=== PATIENT | female | born 1955 | race Caucasian/White ===

== ENCOUNTER 2024-10-08 09:02 | Day surgery (SDC) | payer MEDICARE, SELFPAY ==
--- NOTE | 2024-10-01 12:58 | HPS.HSE ---
Family Physician
-
Family Physician: NO INTERVIEW UNKNOWN
Chief Complaint
-
Episodic atrial flutter.
History of Present Illness
The patient is a 69 year old female presenting today for episodic atrial flutter. In late July 2024, she was admitted to [facility] for new onset atrial flutter. She reports she was highly symptomatic with palpitations at
the time of presentation. She was placed on a Cardizem drip and converted to normal sinus rhythm. She was started on Eliquis for oral anticoagulation and Sotalol for pharmacological therapy prior to discharge. Since her hospital admission, she does
report intermittent chest discomfort and irregular heart rates likely secondary to her diagnosis. A follow-up EKG done in the office in August 2024 demonstrated significant sinus bradycardia, likely secondary to current medical therapy. It is
recommended she proceed with an atrial flutter ablation at this time in the hopes of potentially discontinuing antiarrhythmic therapy in the near future. Prior to undergoing an ablation, she will require a transesophageal echocardiogram as she held
her Eliquis on 09/17 and 09/18/2024 in the setting of hemorrhoidal bleeding. She denies any current complaints today such as chest pain, shortness of breath, palpitations, nausea, vomiting, diarrhea, lightheadedness, dizziness, cough, sore throat,
or fever.
Medical History
Past Medical History
Past Medical History: Reports Other
Additional Past Medical History:
1. Episodic atrial flutter, pharmacological therapy with Sotalol, oral anticoagulation with Eliquis.
2. Hypertension.
3. Dyslipidemia.
4. Mild mitral regurgitation.
5. Mild aortic insufficiency.
6. Venous varicosities, status post left lower extremity vein stripping.
7. Peptic ulcer disease with GI bleed, status post partial gastrectomy and multiple blood transfusions.
8. Nephrolithiasis.
9. Chronic pancreatitis.
10. Hemorrhoids with intermittent rectal bleeding.
11. Hepatitis C from prior blood transfusion, eradicated in 2019.
12. Chronic diarrhea.
13. Optical migraines.
14. Vertigo.
15. Balance difficulties.
16. Degenerative disc disease.
17. Sciatica.
18. Osteoarthritis.
19. Thyroid nodules.
20. Iron deficiency anemia, status post IV iron.
21. Macular degeneration.
22. Anxiety.
23. Insomnia.
24. Obesity, BMI 30.6.
Past Surgical History: Reports Other
Additional Past Surgical History:
1. Partial gastrectomy.
2. Appendectomy.
3. Hysterectomy.
4. Cholecystectomy.
5. Hemorrhoidal banding x3.
6. Left lower extremity varicose vein stripping.
7. Bilateral foot surgery.
8. Bilateral cataract extraction.
9. Multiple colonoscopies.
10. Multiple endoscopies.
Social History
Tobacco: Non-smoker
Alcohol: None
Personal:
Living: Other (She lives with her in a condo. Her daughter with her family reportedly lives above her residence. )
Family History
Family History: Not pertinent
Allergies / Home Medications
Allergy/Medication List:
Home medications:
1. Apixaban 5 mg p.o. twice a day.
2. Benefiber 2 tbsp p.o. daily.
3. Creon 1 capsule p.o. with snacks as needed.
4. Creon 2 capsules p.o. with meals.
5. Lorazepam 0.5 mg p.o. at bedtime as needed.
6. Florastor 500 mg p.o. daily.
7. Simethicone 80 mg p.o. daily as needed.
8. Sotalol 40 mg p.o. twice a day.
9. PreserVision AREDs 1 tablet p.o. twice a day.
10. Zolpidem 5 mg p.o. at bedtime as needed.
Allergies: No known allergies.
Review of Systems
-
A 12 point ROS was completed and negative except as noted: Yes
Physical Exam
Vital Signs
Blood pressure 137/87. Heart rate 51. Respirations 18. Pulse ox 96%.
Height 5 feet, 3 inches. Weight 78.4 kg. BMI 30.6.
Physical Exam
General: Well Developed, Well Nourished and No Apparent Distress
HEENT: NormoCephalic, Moist mucous membranes, Atraumatic and PERRLA
Respiratory: Clear
Cardiac: Bradycardia
GI: Soft, Non Tender, Non Distended and Other (Obese. )
Musculoskeletal: Normal Gait & Station
Skin: Warm and Dry
Neuro: AO x 3 and Nonfocal/grossly intact
Laboratory Results
-
DIAGNOSTIC STUDIES as of 09/29/2024: White blood cell count 5.1. Hemoglobin 13.6. Platelet count 211,000. PT 13.5. INR 1.00. Sodium 135. Potassium 4.5. BUN 15. Creatinine 0.5. Glucose 97. Calcium 9.4. Magnesium 2.2. AST 35. ALT 38. Albumin 4.3. Type
and screen A positive.
EKG 09/29/2024: Sinus bradycardia. Low voltage QRS. Cannot rule out anterior infarct, age undetermined.
Echocardiogram 09/27/2023: Normal LV and RV size and function. Mild mitral regurgitation. Mild aortic insufficiency.
Impression/Plan
-
IMPRESSION/PLAN:
1. Episodic atrial flutter: The patient is in need of an atrial flutter ablation for symptomatic atrial flutter with Dr. Singh Maldonado. Prior to her ablation, however, she will need a transesophageal echocardiogram to officially rule out a left
atrial appendage thrombus. This will take place on 10/08/[address] Charles Quan. The benefits and risks of the procedure have been explained to the patient. The patient understands these risks and wishes to proceed.
[2024-10-08 10:47] VITALS: BMI 30.3
== END 2024-10-08 11:30 | disposition home or self-care (01) ==
LOC: CATH 09:02
PROVIDERS: ATTENDING PHYSICIAN Internal Medicine Cardiovascular Disease; FAMILY PHYSICIAN Internal Medicine; OTHER PHYSICIAN Internal Medicine Cardiovascular Disease
DX: I48.92 Unspecified atrial flutter (principal); I08.3 Combined rheumatic disorders of mitral, aortic and tricuspid valves; I31.39 Other pericardial effusion (noninflammatory); I70.0 Atherosclerosis of aorta; E66.9 Obesity, unspecified; R07.89 Other chest pain; R00.1 Bradycardia, unspecified; I10 Essential (primary) hypertension; E78.5 Hyperlipidemia, unspecified; I83.92 Asymptomatic varicose veins of left lower extremity; K27.9 Peptic ulcer, site unspecified, unspecified as acute or chronic, without hemorrhage or perforation; Z87.19 Personal history of other diseases of the digestive system; K86.1 Other chronic pancreatitis; Z86.19 Personal history of other infectious and parasitic diseases; G43.B0 Ophthalmoplegic migraine, not intractable; M19.90 Unspecified osteoarthritis, unspecified site; Z68.30 Body mass index [BMI] 30.0-30.9, adult; H35.30 Unspecified macular degeneration; E04.2 Nontoxic multinodular goiter; D50.9 Iron deficiency anemia, unspecified; F41.9 Anxiety disorder, unspecified; Z90.49 Acquired absence of other specified parts of digestive tract; Z79.01 Long term (current) use of anticoagulants; Z90.710 Acquired absence of both cervix and uterus; Z79.899 Other long term (current) drug therapy
CPT/HCPCS: 93312; 93320; 93325

== ENCOUNTER 2024-10-13 05:54 | Day surgery (SDC) | payer MEDICARE, SELFPAY ==
--- NOTE | 2024-09-29 11:25 | HPS.HSE ---
Family Physician
-
Family Physician: NO INTERVIEW UNKNOWN
Chief Complaint
-
Episodic atrial flutter.
History of Present Illness
The patient is a 69 year old female presenting today for episodic atrial flutter. In late July 2024, she was admitted to [facility] for new onset atrial flutter. She reports she was highly symptomatic with palpitations at
the time of presentation. She was placed on a Cardizem drip and converted to normal sinus rhythm. She was started on Eliquis for oral anticoagulation and Sotalol for pharmacological therapy prior to discharge. Since her hospital admission, she does
report intermittent chest discomfort and irregular heart rates likely secondary to her diagnosis. A follow-up EKG done in the office in August 2024 demonstrated significant sinus bradycardia, likely secondary to current medical therapy. It is
recommended she proceed with an atrial flutter ablation at this time in the hopes of potentially discontinuing antiarrhythmic therapy in the near future. She denies any current complaints today such as chest pain, shortness of breath, palpitations,
nausea, vomiting, diarrhea, lightheadedness, dizziness, cough, sore throat, or fever.
Medical History
Past Medical History
Past Medical History: Reports Other
Additional Past Medical History:
1. Episodic atrial flutter, pharmacological therapy with Sotalol, oral anticoagulation with Eliquis.
2. Hypertension.
3. Dyslipidemia.
4. Mild mitral regurgitation.
5. Mild aortic insufficiency.
6. Venous varicosities, status post left lower extremity vein stripping.
7. Peptic ulcer disease with GI bleed, status post partial gastrectomy and multiple blood transfusions.
8. Nephrolithiasis.
9. Chronic pancreatitis.
10. Hemorrhoids with intermittent rectal bleeding.
11. Hepatitis C from prior blood transfusion, eradicated in 2019.
12. Chronic diarrhea.
13. Optical migraines.
14. Vertigo.
15. Balance difficulties.
16. Degenerative disc disease.
17. Sciatica.
18. Osteoarthritis.
19. Thyroid nodules.
20. Iron deficiency anemia, status post IV iron.
21. Macular degeneration.
22. Anxiety.
23. Insomnia.
24. Obesity, BMI 30.6.
Past Surgical History: Reports Other
Additional Past Surgical History:
1. Partial gastrectomy.
2. Appendectomy.
3. Hysterectomy.
4. Cholecystectomy.
5. Hemorrhoidal banding x3.
6. Left lower extremity varicose vein stripping.
7. Bilateral foot surgery.
8. Bilateral cataract extraction.
9. Multiple colonoscopies.
10. Multiple endoscopies.
Social History
Tobacco: Non-smoker
Alcohol: None
Personal:
Living: Other (She lives with her in a condo. Her daughter with her family reportedly lives above her residence. )
Family History
Family History: Not pertinent
Allergies / Home Medications
Allergy/Medication List:
Home medications:
1. Apixaban 5 mg p.o. twice a day.
2. Benefiber 2 tbsp p.o. daily.
3. Creon 1 capsule p.o. with snacks as needed.
4. Creon 2 capsules p.o. with meals.
5. Lorazepam 0.5 mg p.o. at bedtime as needed.
6. Florastor 500 mg p.o. daily.
7. Simethicone 80 mg p.o. daily as needed.
8. Sotalol 40 mg p.o. twice a day.
9. PreserVision AREDs 1 tablet p.o. twice a day.
10. Zolpidem 5 mg p.o. at bedtime as needed.
Allergies: No known allergies.
Review of Systems
-
A 12 point ROS was completed and negative except as noted: Yes
Physical Exam
Vital Signs
Blood pressure 137/87. Heart rate 51. Respirations 18. Pulse ox 96%.
Height 5 feet, 3 inches. Weight 78.4 kg. BMI 30.6.
Physical Exam
General: Well Developed, Well Nourished and No Apparent Distress
HEENT: NormoCephalic, Moist mucous membranes, Atraumatic and PERRLA
Respiratory: Clear
Cardiac: Bradycardia
GI: Soft, Non Tender, Non Distended and Other (Obese. )
Musculoskeletal: Normal Gait & Station
Skin: Warm and Dry
Neuro: AO x 3 and Nonfocal/grossly intact
Laboratory Results
-
DIAGNOSTIC STUDIES as of 09/29/2024: White blood cell count 5.1. Hemoglobin 13.6. Platelet count 211,000. PT 13.5. INR 1.00. Sodium 135. Potassium 4.5. BUN 15. Creatinine 0.5. Glucose 97. Calcium 9.4. Magnesium 2.2. AST 35. ALT 38. Albumin 4.3. Type
and screen A positive.
EKG 09/29/2024: Sinus bradycardia. Low voltage QRS. Cannot rule out anterior infarct, age undetermined.
Echocardiogram 09/27/2023: Normal LV and RV size and function. Mild mitral regurgitation. Mild aortic insufficiency.
Impression/Plan
-
IMPRESSION/PLAN:
1. Episodic atrial flutter: The patient is in need of an atrial flutter ablation with Dr. Singh Maldonado on 10/13/2024. The benefits and risks of the procedure have been explained to the patient. The patient understands these risks and wishes to
proceed. She is aware to continue her Eliquis uninterrupted prior to her procedure. She will take no medications the morning of her ablation.
2. Hemorrhoids with intermittent hemorrhoidal bleeding: The patient reports she held her Eliquis 09/17/2024 and 09/18/2024 in the setting of hemorrhoidal bleeding. This was discussed with Dr. Maldonado pre-operatively. Given this, she will be required
to undergo a preprocedural transesophageal echocardiogram to officially rule out a left atrial appendage thrombus. This is scheduled to take place on 10/08/2024.
[2024-09-29 12:27] VITALS: BMI 30.6
[2024-10-13] VITALS (15 sets, daily range): BP systolic 120–150; BP diastolic 59–103
[2024-10-13 08:55] LABS: ACT-LR - POC 285 Seconds (116-155)
[2024-10-13 09:17] LABS: ACT-LR - POC 269 Seconds (116-155)
--- NOTE | 2024-10-13 10:06 | ITS.CL.ABL ---
[facility] - Ablation
Ablation
Procedure Report:
ELECTROPHYSIOLOGY ABLATION STUDY
DATE:: 10/13/2024�����������������������������REFERRING: Dr Aurelio Velasquez
INDICATION: Paroxysmal supraventricular tachycardia in the form of atypical atrial flutter with positive P wave throughout the precordium and into 3 and aVF with apparent 2-1 AV conduction on outpatient ECG suggesting left atrial
flutter.��Refractory to sotalol therapy
HISTORY: See H and P.��As above
ANTIARRHYTHMIC DRUG: Sotalol
PRE-PROCEDURE MAY: No intracardiac thrombus
PRESENTING RHYTHM: Sinus rhythm
'TIME-OUT':��called and confirmed.
SEDATION/ANESTHESIA:��provided via the anesthesia department using general anesthesia (LMA).
INTRAVENOUS/ARTERIAL ACCESS:
Right femoral venous - 8Fr
Left femoral venous - 8 Fr, 6 Fr
[id number] closure
Ultrasound guidance for bilateral femoral vein access was utilized by me to obtain access with demonstration of normal anatomy
CHADS-VASC Score:
HAS-Bled Score
PROCEDURE:
1.��A decapolar CS catheter was placed within the CS for mapping and pacing.��This was also used as the reference catheter for the 3-D map. The patient was inducible for narrow complex tachycardia cycle length 410 ms after isolation of the left
atrial posterior wall and pulmonary vein isolation as below. With atrial extrastimuli from the right atrium and burst atrial pacing at EP study post left atrial ablation repetitive for 10 ms narrow complex tachycardia was inducible. VA time of
less than 60 ms was notable. We could terminate the tachycardia from the ventricle without activating the atrium. Ventricular pacing reliably terminated the tachycardia but we were able to overdrive pace the arrhythmia from the atrium
demonstrating an CRAIG response with long post pacing interval and earliest activation at the fast pathway of the AV node. ARDON minus VA maneuver was less than -40 ms. This strongly favored AV mima reentry as the subsequent inducible arrhythmia and
we modified the slow pathway of the AV node utilizing a 4 mm sapphire catheter at 50 W, 50 degrees, and up to 32nd lesions at a 1-3 AV ratio and a fractionated atrial electrogram. Junctional beats were notable at the area of ablation with a total
of 4 minutes of radiofrequency energy applied. Additional lesions were given superior inferior anterior and posterior to the area of junctional beats from ablation and the patient was then noninducible for supraventricular arrhythmia after
ablation. There was no evidence for slow pathway conduction after ablation in this region.
2. The intracardiac ultrasound catheter was positioned in the RA to identify the FO for targeting of transseptal puncture, assist��in identification of the pulmonary vein ostia, monitoring pre and post ablation pulmonary vein flow velocities,
monitoring for 'bubble' formation during RF application as a sign of thermal injury,��and to monitor for pericardial effusion during mapping and ablation procedure.���Left atrial size, LV ejection fraction, and pulmonary vein flows were monitored
pre and post ablation procedure. The other valves were inspected and found to be free of significant regurgitation or stenosis.
3.��Half of the calculated heparin bolus was administered prior to the first transeptal puncture.��Transseptal puncture was performed to diagnose RA and LA pressure so that safety of LA mapping and ablation could be further assessed, and to access
the left atrium and pulmonary veins for mapping and ablation.��This entailed advancing an 16.8 Sammarinese Sammarinese sheath with RF wire and dilator into the superior vena cava and withdrawing both (monitoring intracardiac ultrasound, fluoroscopy and tip
pressure) with the tip oriented toward the atrial septum.��The fossa ovalis was engaged (indicated by sudden displacement of the sheath tip as well as tenting of the fossa seen on intracardiac ultrasound).��Left atrial access required a pass with
the Brockenbrough needle extended.��Left atrial catheter position was confirmed by pressure monitoring (RA mean pressure 8 mm Hg and LA mean presure 14 mm Hg), LA saturation (99%),��as well as fluoroscopy.��The sheath was advanced over the dilator
and positioned in the left atrium.��This procedure was repeated for the Agilis sheath.��The remainder of the calculated heparin bolus was administered and heparin was
infused to maintain ACT at 300 -350 seconds throughout the case.
4.��RA pacing was performed via the proximal decapolar poles and LA pacing was performed via the distal decapolar poles.
5. A quadrapolar catheter was first positioned at the His position for His Bundle recording which was tagged via the 3-D Navex sytem, and then passed to the RVA for RV pacing and recording.
6. The multipolar catheter and the PFA catheter were placed in each of the LIPV, LSPV, RSPV and the RIPV.��
7.��Next, a 3-D map was created using Navex.���A 3-D reconstructed CT image was compared to the 3-D Navex map to assist in anatomic interpretation, mapping and ablation.��The CT image and the NavX image were fused.
8. A total of 48 lesions were given in the left atrium. An olive and basket pose the pulmonary veins were isolated. The flower post was given to the roof posterior wall and floor of the left atrium as well as the interatrial septum isolating
these regions as well. Entrance exit block was confirmed in all 4 pulmonary veins and the posterior wall after ablation. Follow-up EP study as seen above was inducible for supraventricular apnea repetitively which diagnostic maneuvers demonstrated
to be AV mima reentry. Slow pathway modification was performed after left atrial ablation as delineated above.
9. Normal sinus node and AV node function noted.
TOTAL FLOURO TIME: 15.6 minutes
TOTAL RF DURATION: 4.1 minutes utilized for the slow pathway modification
REVERSAL OF HEPARIN: 40 mg of protamine, slow IV administration
COMPLICATIONS:
None
Intracardiac US shows no pericardial effusion post ablation.
SUMMARY:��
Complex left atrial mapping and ablation.
Left atrial posterior wall isolation and pulmonary vein isolation for clinical left atrial flutter. Post ablation the patient was inducible for AV mima reentry tachycardia and slow pathway modification with a 4 mm sapphire catheter was notable as
above. The patient was noninducible for SVT after slow pathway modification.
RECOMMENDATIONS:
1. Consider same-day discharge
2. Resume anticoagulation x 3 months
3.��Discontinue sotalol and start low-dose Toprol 25 mg XL daily
4.��Ambulate in 4 hours after [id number] sutures cut
Copy to: Dr. Aurelio Velasquez
--- NOTE | 2024-10-13 14:21 | W.PN.UPDATE ---
Update Note
Progress Note Update
69 yo WF s/p PVI (Same day). She had mild sore throat, no cp, sob, ghazal diet, voiding, amb w/o dizziness, EKG SR, b/l groins c/d/i no HT, soft. She will resume Eliquis tonight. She will stop sotalol and start metoprolol xl 25mg in am. Activity
restrictions reviewed. She will f/u Dr. Velasquez in 2-4 weeks. She is for d/c home after 245pm.
SUMMARY:��
Complex left atrial mapping and ablation.
Left atrial posterior wall isolation and pulmonary vein isolation for clinical left atrial flutter. Post ablation the patient was inducible for AV mima reentry tachycardia and slow pathway modification with a 4 mm sapphire catheter was notable as
above. The patient was noninducible for SVT after slow pathway modification.
RECOMMENDATIONS:
1. Consider same-day discharge
2. Resume anticoagulation x 3 months
3.��Discontinue sotalol and start low-dose Toprol 25 mg XL daily
4.��Ambulate in 4 hours after [id number] sutures cut
Copy to: Dr. Aurelio Velasquez
== END 2024-10-13 14:52 | disposition home or self-care (01) ==
LOC: CATH 05:54
PROVIDERS: ATTENDING PHYSICIAN Internal Medicine Cardiovascular Disease; FAMILY PHYSICIAN Internal Medicine; OTHER PHYSICIAN Internal Medicine Cardiovascular Disease
DX: I48.0 Paroxysmal atrial fibrillation (principal); I48.4 Atypical atrial flutter; I10 Essential (primary) hypertension; E78.5 Hyperlipidemia, unspecified; F41.9 Anxiety disorder, unspecified; K86.1 Other chronic pancreatitis; I47.19 Other supraventricular tachycardia; M19.90 Unspecified osteoarthritis, unspecified site; K64.9 Unspecified hemorrhoids; R42 Dizziness and giddiness; D50.9 Iron deficiency anemia, unspecified; G47.00 Insomnia, unspecified; H35.30 Unspecified macular degeneration; E04.2 Nontoxic multinodular goiter; M54.30 Sciatica, unspecified side; G43.B0 Ophthalmoplegic migraine, not intractable; K52.9 Noninfective gastroenteritis and colitis, unspecified; Z68.30 Body mass index [BMI] 30.0-30.9, adult; E66.9 Obesity, unspecified; Z79.899 Other long term (current) drug therapy; Z86.19 Personal history of other infectious and parasitic diseases; Z90.49 Acquired absence of other specified parts of digestive tract; Z90.710 Acquired absence of both cervix and uterus; Z87.442 Personal history of urinary calculi; Z79.01 Long term (current) use of anticoagulants
CPT/HCPCS: C1732; C1730; C1892; C1759; C1894; 85347; 86900; 86901; 93005; 93655; 93656; 93657; C1733; C1766